=== PATIENT | female | born 1965 | race Hispanic/Latino ===

== ENCOUNTER 2017-07-11 09:40 | Outpatient (CLI) | payer OTHER ==
[2017-07-11 11:20] LABS: Hemoglobin 13.9 g/dL (12.0-16.0); Lymphocytes 49 % (21-51); MDiff Complete? YES; Mean Corpuscular HGB CONC 32.8 g/dL (32.0-36.0); Mean Corpuscular Hemoglobin 31.7 pg (27.0-31.0); Mean Corpuscular Volume 96.8 fl (81.0-99.0); Monocytes 3 % (0-10); Neutrophil 36 % (42-75); Platelet Count 290 thou/uL (130-400); RBC Distribution Width 12.8 % (11.5-14.5); RBC Morphology Normal; Reactive Lymphocytes 11 % (0-10); Red Blood Cell (RBC) Count 4.39 mill/uL (4.20-5.40); White Blood Cell (WBC) Count 9.2 thou/uL (4.8-10.8)
[2017-07-11 11:28] LABS: ALT (SGPT) 25 U/L (8-55); AST (SGOT) 20 U/L (5-34); Albumin 3.7 g/dL (3.5-5.0); Alkaline Phosphatase 73 U/L (40-150); BUN (Urea Nitrogen) 11 mg/dL (7.0-18.7); Bilirubin, Total 0.4 mg/dL (0.2-1.2); Calc. Creatinine Clearance 0 mL/min (70-130); Calcium 9.2 mg/dL (7.8-10.44); Carbon Dioxide 30 mmol/L (22-29); Chloride 104 mmol/L (98-107); Estimated GFR-MDRD 90; Globulin 3.3 g/dL (2.4-3.5); Glucose 119 mg/dL (70-105); Lipase 59 U/L (8-78); Potassium 3.7 mmol/L (3.5-5.1); Sodium 140 mmol/L (136-145)
[2017-07-11 11:56] LABS: Anion Gap 11 mmol/L (10-20)
--- NOTE | 2017-07-11 12:53 | RAD ---
FRONTAL VIEW ABDOMEN AND FRONTAL VIEW PELVIS: TECHNIQUE: Two views are submitted including frontal and supine views of the abdomen and pelvis. INDICATION: Abdominal pain unspecified. FINDINGS: The imaged lower lung zones reveal no obvious consolidation, although are over penetrated, which does limit visualization. No evidence of bowel obstruction on the basis of supine imaging. There is a m oderate degree of retained fecal material throughout the colon. No acute osseous abnormality is seen . IMPRESSION: Moderate retained fecal material throughout the colon compatible with constipation. POS: [facility]
--- NOTE | 2017-07-11 12:55 | ULT ---
TRASOUND ABDOMEN COMPLETE HISTORY: Abdominal pain. TECHNIQUE: Hernandez-scale ultrasound evaluation of the liver, gallbladder, spleen, pancreas, common bile duct, kidne ys, abdominal aorta, and inferior vena cava (IVC). FINDINGS: There is increased echogenicity of the hepatic parenchyma. Mild gallbladder sludge is seen, but othe rwise, no acute gallbladder pathology. The common duct is within normal limits of size at 5 mm. No acute abnormality of the kidneys or spleen. No ascites visualized. There is no acute gallbladder pa thology. Pancreas is partially obscured by bowel content and limiting assessment. IMPRESSION: 1. Increased echogenicity in the liver which may relate to hepatic steatosis. Correlate liver funct ion enzymes as necessary. 2. No acute gallbladder pathology. POS: [facility]
== END 2017-07-11 09:41 | disposition home or self-care (01) ==
LOC: ULT 09:40
PROVIDERS: ATTEND Internal Medicine
DX: R10.9 Unspecified abdominal pain (principal)
CPT/HCPCS: 36415; 74018; 76700; 80053; 81001; 83690; 85025; 87077; 87086; 87186

== ENCOUNTER 2017-09-20 12:07 | Outpatient (CLI) | payer OTHER | END 2017-09-20 12:08 | disposition home or self-care (01) | LOC: BICRAD 12:07 | PROVIDERS: ATTEND Internal Medicine | DX: M54.5 Low back pain (principal); M47.896 Other spondylosis, lumbar region | CPT/HCPCS: 72100 ==

== ENCOUNTER 2017-09-29 07:32 | Outpatient (CLI) | payer OTHER | END 2017-09-29 07:33 | disposition home or self-care (01) | LOC: BICMRI 07:32 | PROVIDERS: ATTEND Internal Medicine | DX: M25.562 Pain in left knee (principal) ==

== ENCOUNTER 2017-09-29 13:41 | Outpatient (CLI) | payer OTHER ==
--- NOTE | 2017-11-16 16:11 | ULT ---
DATE: 09/29/17 Lower extremity arterial evaluation was performed using Doppler waveform analysis and segmental limb pressures> Right leg demonstrates normal waveforms at the femoral, popliteal, and posterior tibial level with a normal ankle-arm index of 1.2 and a normal toe-brachial index of 0.97. Similar findings were present on the left with a normal ankle-arm break index and normal toe-brachial index. ASSESSMENT: Normal resting arterial study of the lower extremities.
== END 2017-09-29 13:42 | disposition home or self-care (01) ==
LOC: ULT 13:41
PROVIDERS: ATTEND Internal Medicine
DX: I73.9 Peripheral vascular disease, unspecified (principal); R10.9 Unspecified abdominal pain
CPT/HCPCS: 93922

== ENCOUNTER 2017-12-06 10:05 | Outpatient (CLI) | payer OTHER | END 2017-12-06 10:06 | disposition home or self-care (01) | LOC: BICRAD 10:05 | PROVIDERS: ATTEND Internal Medicine | DX: M75.101 Unspecified rotator cuff tear or rupture of right shoulder, not specified as traumatic (principal); M19.011 Primary osteoarthritis, right shoulder | CPT/HCPCS: 80061; 83036; 86803 ==

== ENCOUNTER 2018-02-09 14:20 | Outpatient (CLI) | payer OTHER ==
--- NOTE | 2018-02-09 18:34 | MRI ---
MRI OF THE RIGHT SHOULDER 02/09/18 PROVIDED CLINICAL HISTORY: Right shoulder pain. FINDINGS: The components of the rotator cuff appear intact. The long head biceps tendon appears intact and norm ally located. The glenoid labrum and glenohumeral articular cartilage are suboptimally evaluated in t he absence of joint distention but appear grossly normal. There is greater than physiologic subacromi al, subdeltoid bursal fluid. Acromioclavicular joint osteoarthrosis is noted without significant mass effect upon the subjacent supraspinatus. No focal concerning regional marrow or muscular signal abnormality. IMPRESSION: 1. No evidence for rotator cuff tear. 2. Greater than physiologic subacromial subdeltoid bursal fluid, correlate for bursitis. 3. Acromioclavicular joint osteoarthrosis. POS: [facility]
== END 2018-02-09 14:21 | disposition home or self-care (01) ==
LOC: SCSMRI 14:20
PROVIDERS: ATTEND Orthopaedic Surgery
DX: M25.511 Pain in right shoulder (principal); M19.011 Primary osteoarthritis, right shoulder

== ENCOUNTER 2018-02-21 13:07 | Outpatient (CLI) | payer OTHER | END 2018-02-21 13:08 | disposition home or self-care (01) | LOC: BICMAMMO 13:07 | PROVIDERS: ATTEND Internal Medicine | DX: Z12.31 Encounter for screening mammogram for malignant neoplasm of breast (principal); R92.1 Mammographic calcification found on diagnostic imaging of breast; Z80.3 Family history of malignant neoplasm of breast | CPT/HCPCS: 77063; 77067 ==

== ENCOUNTER 2018-03-28 09:55 | Day surgery (SDC) | payer OTHER ==
--- NOTE | 2018-03-28 04:41 | HP ---
DATE OF ADMISSION: 03/28/2018 SHORT STAY HISTORY AND PHYSICAL HISTORY OF PRESENT ILLNESS: This is a 52-year-old female, comes for a colonoscopy for colon cancer s creening. The patient has history of constipation off and on. There is no history of rectal bleedin g, any melena. She has no family history of colon cancer. The patient comes for colonoscopy for col on cancer screening. ALLERGIES: PENICILLIN, DARVOCET, CODEINE. SOCIAL HISTORY: The patient does not smoke, but drinks alcohol occasionally. MEDICAL ILLNESSES: 1. Obesity. 2. Hypertension. 3. Hyperlipidemia. 4. Diabetes. 5. TIA. 6. Anxiety. 7. Insomnia. 8. Chronic back pain. 9. Restless legs syndrome. 10. Asthma. 11. Stress incontinence of urine. PHYSICAL EXAMINATION: VITAL SIGNS: Pulse is 70, blood pressure 130/80. HEENT: Conjunctivae clear. CARDIOVASCULAR SYSTEM: First and second heart sounds normal. LUNGS: Clear to auscultation. ABDOMEN: Soft. No organomegaly. No tenderness. No masses. ADMITTING DIAGNOSIS: A 52-year-old female comes in for colonoscopy for colon cancer screening.
[2018-03-28] MEDS ORDERED: PROPOFOL 200 MG/20 ML VIAL ONE (15:04)
--- NOTE | 2018-03-28 15:14 | OP ---
DATE OF SURGERY: 03/28/2018 OPERATIVE PROCEDURE: Colonoscopy. PREOPERATIVE DIAGNOSIS: Colon cancer screening. POSTOPERATIVE DIAGNOSES: Scattered diverticular disease, mild and some diverticula in the transverse colon area. Otherwise, normal colonoscopy. PROCEDURE IN DETAIL: The patient was placed on her left lateral position and was given sedation by Anesthesia Department. A rectal exam was done. The scope was advanced into the rectum. No lesions were felt on rectal exam. A [employer]ax video colonoscope was introduced into the rectum and advanced all the way into the cecum. The prep is fair. The patient had some fecal coating in mucosa of the transverse colon and also proximal transverse colon. The left colon is very clear except for some solid stool. The cecum, no pathology seen. Withdrawal of scope from cecum to ascending colon, hepatic flexure, no pathology seen. She had some diverticula at the transverse colon area. The splenic flexure and descending colon, no pathology seen. Rectum showed no pathology. DISCHARGE PLANNING: This is a 52-year-old [place] female who came in for colonoscopy. The colonoscopy showed no polyps, does have some scattered diverticula. DISCHARGE RECOMMENDATIONS: 1. High-fiber diet. 2. Metamucil. The patient was advised to call me if she develops abdominal pain or hematochezia. 3. Repeat colonoscopy in 10 years. [facility]
== END 2018-03-28 12:33 | disposition home or self-care (01) ==
LOC: SDC 09:55
PROVIDERS: ATTEND Internal Medicine Gastroenterology
PROC: 0DJD8ZZ Inspection of Lower Intestinal Tract, Via Natural or Artificial Opening Endoscopic (ICD-10-PCS; principal; 2018-03-28)
DX: Z12.11 Encounter for screening for malignant neoplasm of colon (principal); K57.90 Diverticulosis of intestine, part unspecified, without perforation or abscess without bleeding; Z88.0 Allergy status to penicillin; Z88.5 Allergy status to narcotic agent; Z91.030 Bee allergy status; Z91.018 Allergy to other foods
CPT/HCPCS: J2704

== ENCOUNTER 2018-05-18 08:59 | Outpatient (CLI) | payer OTHER ==
--- NOTE | 2018-05-18 10:09 | ULT ---
RIGHT UPPER QUADRANT ULTRASOUND: Indication: Vomiting. Comparison: 03-19-15 FINDINGS: There is overlying bowel gas which limits image detail. There is diffuse fatty infiltration. There is an area of focal fatty sparring near the gallbladder fossa. Visualized gallbladder is normal appeari ng. Common bile duct measures 5.8 mm. Right kidney measures 9.3 x 4 x 4 cm. No hydronephrosis is evid ent. The pancreas is obscured. IMPRESSION: Fatty liver with focal fatty sparring of the gallbladder fossa. POS: [facility]
== END 2018-05-18 09:00 | disposition home or self-care (01) ==
LOC: BICULT 08:59
PROVIDERS: ATTEND Internal Medicine
DX: R11.10 Vomiting, unspecified (principal); K76.0 Fatty (change of) liver, not elsewhere classified; K82.8 Other specified diseases of gallbladder
CPT/HCPCS: 76705

== ENCOUNTER 2018-11-14 16:37 | Outpatient (CLI) | payer OTHER ==
--- NOTE | 2018-11-14 16:56 | RAD ---
KUB: 11/14/18 COMPARISON: None. HISTORY: Constipation for four days. FINDINGS: Anterior views of the abdomen shows a nonspecific, nonobstructive bowel gas pattern. Mild stool is se en throughout the colon. No suspicious calcifications are seen. IMPRESSION: Mild stool retention in the colon. POS: [facility]
== END 2018-11-14 16:38 | disposition home or self-care (01) ==
LOC: BICRAD 16:37
PROVIDERS: ATTEND Internal Medicine
DX: K59.00 Constipation, unspecified (principal)
CPT/HCPCS: 74018

== ENCOUNTER 2020-09-15 10:46 | Outpatient (CLI) | payer OTHER | END 2020-09-15 10:47 | disposition home or self-care (01) | LOC: BICMAMMO 10:46 | PROVIDERS: ATTEND Internal Medicine | DX: Z12.31 Encounter for screening mammogram for malignant neoplasm of breast (principal) | CPT/HCPCS: 77063; 77067 ==

== ENCOUNTER 2020-10-17 10:44 | Outpatient (CLI) | payer OTHER | END 2020-10-17 10:45 | disposition home or self-care (01) | LOC: BICRAD 10:44 | PROVIDERS: ATTEND Nurse Practitioner Family | DX: R20.0 Anesthesia of skin (principal); M47.812 Spondylosis without myelopathy or radiculopathy, cervical region | CPT/HCPCS: 72040 ==

== ENCOUNTER 2021-01-17 19:30 | Outpatient (CLI) | payer OTHER | END 2021-01-17 19:31 | disposition home or self-care (01) | LOC: SLEEPLAB 19:30 | PROVIDERS: ATTEND Internal Medicine | DX: G47.33 Obstructive sleep apnea (adult) (pediatric) (principal); R53.83 Other fatigue; E66.9 Obesity, unspecified; R06.83 Snoring; Z68.42 Body mass index [BMI] 45.0-49.9, adult | CPT/HCPCS: 95810 ==

== ENCOUNTER 2021-03-07 19:30 | Outpatient (CLI) | payer OTHER | END 2021-03-07 19:31 | disposition home or self-care (01) | LOC: SLEEPLAB 19:30 | PROVIDERS: ATTEND Internal Medicine | DX: G47.33 Obstructive sleep apnea (adult) (pediatric) (principal); R53.83 Other fatigue; R06.83 Snoring; G47.10 Hypersomnia, unspecified; E66.9 Obesity, unspecified; Z68.42 Body mass index [BMI] 45.0-49.9, adult | CPT/HCPCS: 95811 ==

== ENCOUNTER 2021-08-27 11:42 | Emergency (ER) | payer OTHER ==
[2021-08-27] MEDS ORDERED: Metoclopramide HCl 10 MG/2 ML VIAL ONE (12:02)
[2021-08-27] MEDS ORDERED: Magnesium 2 GM/50 ML BAG (IN WATER) ONE (12:02)
[2021-08-27 12:25] LABS: #Eosinphils 0.1 thou/uL (0.0-0.7); #Lymphocytes 2.2 thou/uL (1.20-3.40); #Monocytes 0.4 thou/uL (0.11-0.59); #Neutrophils 2.2 thou/uL (1.40-6.50); %Basophils 0.9 % (0.0-1.0); %Eosinophils 2.8 % (0.0-10.0); %Lymphocytes 44.3 % (21.0-51.0); %Neutrophils 44.1 % (42.0-75.0); Hemoglobin 13.2 g/dL (12.0-16.0); Mean Corpuscular HGB CONC 33.1 g/dL (32.0-36.0); Mean Corpuscular Hemoglobin 32.2 pg (27.0-31.0); Mean Corpuscular Volume 97.2 fL (78.0-98.0); Mean Platelet Volume 8.4 fL (7.4-10.4); Platelet Count 227 thou/uL (130-400); RBC Distribution Width 12.3 % (11.5-14.5); White Blood Cell (WBC) Count 4.9 thou/uL (4.8-10.8)
[2021-08-27 12:47] LABS: ALT (SGPT) 24 U/L (8-55); AST (SGOT) 26 U/L (5-34); Albumin 3.5 g/dL (3.5-5.0); Alkaline Phosphatase 71 U/L (40-110); Anion Gap 11 mmol/L (10-20); BUN (Urea Nitrogen) 12 mg/dL (9.8-20.1); Bilirubin, Total 0.3 mg/dL (0.2-1.2); Calc. Creatinine Clearance 0 mL/min (70-130); Calcium 8.7 mg/dL (7.8-10.44); Carbon Dioxide 23 mmol/L (22-29); Chloride 110 mmol/L (98-107); Globulin 3.7 g/dL (2.4-3.5); Glucose 105 mg/dL (70-105); Potassium 3.9 mmol/L (3.5-5.1); Protein, Total 7.2 g/dL (6.0-8.3); Sodium 140 mmol/L (136-145)
== END 2021-08-27 14:20 | disposition home or self-care (01) ==
LOC: ERS 11:42
DX: G43.909 Migraine, unspecified, not intractable, without status migrainosus (principal); R07.9 Chest pain, unspecified; Z86.73 Personal history of transient ischemic attack (TIA), and cerebral infarction without residual deficits; J45.909 Unspecified asthma, uncomplicated; I10 Essential (primary) hypertension; E78.5 Hyperlipidemia, unspecified
CPT/HCPCS: 36415; 70450; 71045; 80053; 84484; 85025; 93005; 96365; 96375; J2765; J3475

== ENCOUNTER 2022-01-28 07:38 | Outpatient (CLI) | payer OTHER | END 2022-01-28 07:39 | disposition home or self-care (01) | LOC: BICRAD 07:38 | PROVIDERS: ATTEND Internal Medicine | DX: M54.41 Lumbago with sciatica, right side (principal); M25.561 Pain in right knee; M25.562 Pain in left knee; M25.551 Pain in right hip; M25.552 Pain in left hip; M79.671 Pain in right foot; M77.31 Calcaneal spur, right foot; M47.816 Spondylosis without myelopathy or radiculopathy, lumbar region | CPT/HCPCS: 72100 ==